=== PATIENT | female | born 1985 | race Asian ===

== ENCOUNTER 2024-12-28 23:30 | Emergency (ER) | payer SELFPAY ==
--- NOTE | ~2024-12-28 | XR_ITS ---
CLINICAL HISTORY: cough 1 view chest x-ray Comparison: None provided Findings: Heart size is normal. Lungs are somewhat hyperinflated. Mild interstitial changes which could be chronic. No consolidation, significant pleural effusion or pneumothorax. No acute fracture. Dextrocurvature of the spine suggestive of scoliosis. IMPRESSION: 1. No acute findings. 2. Mild hyperinflation and interstitial changes which could be chronic. This document has been electronically signed by: Tana Wright MD on 12/29/2024 00:52:25
[2024-12-28 23:34] VITALS: BP 120/88; PULSE 100; RESP 20; TEMP 36.8; O2SAT 95; BMI 22.2
[2024-12-29] MEDS: Albuterol Sulfate 5 MG, Albuterol/Iprat 2.5/0.5MG 3 ML 3 ML INHALE (00:03)
--- NOTE | 2024-12-29 00:03 | ED_ITS ---
HPI - Asthma General Chief Complaint: Asthma Stated Complaint: SoB Time Seen by Provider: 12/28/24 23:39 Source: patient Limitations: no limitations History of Present Illness ED Provider: Maddi Hurtado PA-C HPI Narrative: 39-year-old female with a history of asthma presents with cough and cold symptoms x3 days. Associated chest tightness with wheezing. Patient states she is not responding to her home inhaler. Denies fever or sick contacts with similar symptoms. Related Data Previous Rx's ?Medication ?Instructions ?Recorded albuterol sulfate 90 mcg/actuation 2 puff inhalation Q 4-6H PRN 12/29/24 aerosol inhaler (Ventolin HFA) shortness of breath or wheezing #8.5 grams prednisone 20 mg tablet 40 mg (2 x 20 mg) PO DAILY # 8 tabs 12/29/24 Allergies Allergy/AdvReac Type Severity Reaction Status Date / Time No Known Allergies Allergy Verified 12/28/24 23:35 Review of Systems Review of Systems: Yes all other systems are reviewed and are negative Constitutional: Constitutional: Denies fatigue and Denies fever(s) Cardiovascular: Cardiovascular: Denies chest pain and Reports dyspnea Respiratory: Respiratory: Reports cough, Reports dyspnea and Reports wheezing Endocrine: Endocrine: Denies fatigue Allergic/Immunologic: Allergic/Immunologic: Reports wheezing PMFSH Past Medical History Attestation statement: The following information was validated with the patient. Social History Social History Advance Directives: No Advance Directives Information Provided: Yes Physical Exam Vital Signs: Vital Signs: Last Vital Signs Temp 98.2 F 12/28/24 23:34 Pulse 79 12/29/24 00:04 Resp 18 12/29/24 00:04 BP 120/88 12/28/24 23:34 Pulse Ox 95 12/28/24 23:34 O2 Del Method Room Air 12/28/24 23:34 BMI result Body Mass Index 22.2 Const: Other: Alert well-appearing Orientation/consciousness: patient oriented x3 Resp: Other: Diffuse expiratory wheezes posterior gardiner Cardio: Other: Normal peripheral perfusion Skin: Other: Warm dry no rash Neuro: General: patient oriented x3, gait normal, no focal motor deficits and CN's II-XI intact bilaterally Psych: Other: Cooperative Course Course Course Narrative: Patient improved after treatment Medications Administered Discontinued Medications Generic Name Dose Route Start Last Admin Trade Name Freq PRN Reason Stop Dose Admin Albuterol Sulfate 5 mg/ 0 mg 12/28/24 23:56 12/29/24 00:03 Albuterol/Ipratropium 3 ml INHALE 12/28/24 23:57 7.5 each ONCE ONE Administration Prednisone 40 mg 12/28/24 23:40 12/28/24 23:47 Prednisone 20 Mg Tablet PO 12/28/24 23:41 40 mg ONCE ONE Administration Medical Decision Making Medical Decision Making MDM Narrative: 39-year-old female with a history of asthma presents with cough and cold symptoms x3 days. Associated chest tightness with wheezing. Patient states she is not responding to her home inhaler. Denies fever or sick contacts with similar symptoms. Problem: Asthma History: Per patient I have considered the following differential diagnoses: Asthma exacerbation, viral syndrome, pneumonia, bronchitis Plan: Viral panel and chest x-ray ordered, we will order an updraft and give steroid. I have independently reviewed the following tests: Labs: Viral panel negative Chest x-ray:Findings: Heart size is normal. Lungs are somewhat hyperinflated. Mild interstitial changes which could be chronic. No consolidation, significant pleural effusion or pneumothorax. No acute fracture. Dextrocurvature of the spine suggestive of scoliosis. IMPRESSION: 1. No acute findings. 2. Mild hyperinflation and interstitial changes which could be chronic. Differential Diagnosis Differential Diagnoses: The differential diagnosis associated with the presentation includes See medical decision-making Admission/Observation Consideration of admission/observation: Escalation of care including admission/observation considered Not applicable Lab Data [facility] Lab Attestation statement: I reviewed the patient's lab results. Labs: Lab Results 12/28/24 Range/Units 23:50 Influenza Type A (PCR) NEGATIVE (Negative) Influenza Type B (PCR) NEGATIVE (Negative) RSV RNA Qual (PCR) NEGATIVE (Negative) SARS-CoV-2 RNA (RT-PCR) NEGATIVE (Negative) Radiology Impression Discussion of test interpretation with radiology: I have reviewed the radiologist's reading. Discharge Plan Discharge Clinical Impression: Asthma with acute exacerbation Patient Disposition: Home, Self-Care Instructions: Asthma (ED) Additional Instructions: You were tested for influenza RSV and COVID, the viral panel was negative. The chest x-ray is clear you do not have pneumonia. You are being treated for an asthma exacerbation. See home care instructions. Use your inhaler as needed, take the steroid as directed. Follow up with primary care as needed. Prescriptions: New albuterol sulfate [Ventolin HFA] 90 mcg/actuation HFA aerosol inhaler 2 puff inhalation Q4-6H PRN (Reason: shortness of breath or wheezing) Qty: 8.5 0RF prednisone 20 mg tablet 40 mg PO DAILY Qty: 8 0RF Stand Alone Forms: Work/School Release Print Language: Turkish
[2024-12-29 00:04] VITALS: PULSE 79; RESP 18; O2SAT 97
--- OUTSIDE RECORDS SUMMARY | 2024-12-29 00:33 | XMS_ITS | Clinical Summary ---
Author Organization [facility] Address [address] [place] [address] Phone Care Team Providers Care Exchange Teller Name Role Phone Pcp, Unknown Primary Care Provider Unavailabl e Allergies Active Allergy Reactions Criticality Noted Date Comments Cat Dander 09/02/2024 Dog Dander 09/02/2024 Egg 09/02/2024 Other 09/02/2024 Pollen Medications ondansetron (ZOFRAN-ODT) 4 MG disintegrating tablet (To-Go) Take 1-2 tablet(s) by mouth every 8 hours as needed for nausea/vomi ting 6 tablet Active Social History Tobacco Use Types Packs/Day Years Used Date Smoking Tobacco: Never Assessed Education Answer Date Recorded Are you interested in more education? Not on meng e 09/03/2024 Are you concerned about learning? Not on file 09/03/2024 No 09/03/2024 No 09/03/2024 Food Answer Date Recorded Within the past 6 months we worried whether our food would run out before we got money to buy more. Never True 09/03/2024 Within the past 6 months the food we bought just didn't last and we didn't have enough money to get more. Never True Residential Stability Answer Date Recor ded What is your housing situation today? I have althea sing 09/03/2024 How many times have you move d in the past 12 months? Zero (I did not move) 09/03/2024 Paying for Meds Answer Date Recorded Do you have trouble paying for medicines? No 09/03/2024 Paying Utility Bills Answer Date Record ed Do you have trouble paying your heating or elect ricity bill? No 09/03/2024 Transportation Answer Date Recorded Has the lack of transportati on kept you from medical appointments or from getting medications? No 09/03/2024 Digital Access Answer Date Recorded No 09/03/2024 Yes 09/03/2024 Do you have reliable internet access at home? Ye s 09/03/2024 Do you have a device (e.g., phone, tablet, computer) with a working camera? Yes 09/03/2024 Intimate Partner Violence Answer Date R ecorded Are you denied basic needs s uch as food, clothing, or medical care? No 09/02/2024 In the past 12 months have y ou been in a relationship with a person who hurts, threatens, or tries to control you? No 09/02/2024 Are you denied basic needs s uch as food, clothing, or medical care? No 09/02/2024 In the past 12 months have y ou been in a relationship with a person who hurts, threatens, or tries to control you? No 09/02/2024 Comments Unknown Sex and Gender Information Value Date Recorded Sex Assigned at Female 09/03/2024 2:49 AM EDT Legal Sex Female 9:13 PM EDT Gender Identity Female 09/03/2024 2:49 AM EDT Sexual Orientation Straight 09/03/2024 2: 49 AM EDT Last Filed Vital Signs Vital Sign Reading Time Taken Comments Blood Pressure 93/50 09/02/2024 11:49 PM EDT Pulse 88 09/02/2024 11:49 PM EDT Temperature 36.3 C (97.3 F) 09/02/2024 11:49 PM EDT Respiratory Rate 18 09/02/2024 11:49 PM EDT Oxygen Saturation 99% 09/02/2024 11:49 PM EDT Inhaled Oxygen Concentration - - Weight 49 kg (108 lb) 09/02/2024 11:49 PM EDT Height 149.9 cm (4' 11 ) 09/02/2024 11:49 PM EDT Body Mass Index 21.81 09/02/2024 11:49 PM EDT Plan of Treatment Health Maintenance Due Date Last Done Comments Adult Td,Tdap Booster 1985 DEPRESSION SCREENING 1997 SMOKING Hx and SMOKELESS TOB ACCO SCREENING 1998 HEPATITIS C SCREENING 09/12/2003 HIV ONE-TIME SCREENING (18-6 5 YEARS) 09/12/2003 PAP SMEAR 2006 INFLUENZA VACCINE (#1) 2024 COVID-19 VACCINE ( - 2024-2 6 season) 2024 HEPATITIS A VACCINES Aged Out No long er eligible based on patient's age to complete this topic HIB VACCINES Aged Out No longer eligi ble based on patient's age to complete this topic MENINGOCOCCAL VACCINES (ACWY) Aged Out No longer eligible based on patient's age to complete this topic MENINGOCOCCAL VACCINES (B) Aged Out N o longer eligible based on patient's age to complete this topic PNEUMOCOCCAL VACCINES (0-49 years) Aged Out No longer eligible based on patient's age to complete this topic Medical Devices Not on file Care Teams Exchange Teller Relationship Specialty Start Date End Date Pcp, Unknown PCP - General 09/02/24 Additional Source Comments The information contained in this document represents components of the legal health record. It is not the complete legal health record.[facility]
--- OUTSIDE RECORDS SUMMARY | 2024-12-29 00:33 | XMS_ITS | Clinical Summary ---
Author Organization [employer] Address [address] [place] [address] Care Team Providers Care Aerosol Line Operator Name Role Phone Unavailable Primary Care Provider Unavailabl e Encounters Date Type Department Care Team Description 12/03/2024 Population Health Risk Score [facility] ([facility]) Department [address] [place] [id number] Provider, Population Health Generic from Last 3 Months Social History Tobacco Use Types Packs/Day Years Used Date Smoking Tobacco: Never Assessed Comments Unknown Sex and Gender Information Value Date Recorded Sex Assigned at Not on file Legal Sex Female 2:34 AM EDT Gender Identity Not on file Sexual Orientation Not on file Plan of Treatment Health Maintenance Due Date Last Done Comments Depression Screening 1985 HIV Screening 1985 SDOH Screening 1985 Disability Screening 1985 Alcohol/Substance Use Screening 1997 Tobacco Screening 1997 Family Planning (PISQ) 2000 HPV Vaccines (1 - 3-dose series) 2000 Hepatitis C Screening 09/12/2003 DTaP/Tdap/Td Vaccines (1 - Tdap) 2004 Hepatitis B Vaccines (1 of 3 - 19+ 3-dose series) 2004 Pap Smear 2006 Cervical Cancer Screening 09/12/2015 HPV/Cotest 09/12/2015 COVID-19 Vaccine (1 - 2023-2 5 season) 2024 Influenza Vaccine (#1) 2024 Zoster Vaccines (1 of 2) 09/12/2035 RSV Patients and Pa tients Aged 60 years or older (1 - 1-dose 75+ series) 2060 HIB Vaccines Aged Out No longer eligi ble based on patient's age to complete this topic Hepatitis A Vaccines Aged Out No long er eligible based on patient's age to complete this topic IPV Vaccines Aged Out No longer eligi ble based on patient's age to complete this topic Meningococcal B Vaccine Aged Out No l onger eligible based on patient's age to complete this topic Meningococcal Vaccine Aged Out No gaetano manny eligible based on patient's age to complete this topic Pneumococcal Vaccine: Pediat rics (0 to 5 Years) and At-Risk Patients (6 to 49) Years Aged Out No longer eligible b ased on patient's age to complete this topic RSV under 20 months Aged Out No longe r eligible based on patient's age to complete this topic Rotavirus Vaccines Aged Out No longer eligible based on patient's age to complete this topic
[2024-12-29 00:34] LABS: Resp Syncy Virus RNA Qual PCR NEGATIVE (Negative); SARS COV2 PCR INHOUSE NEGATIVE (Negative)
[2024-12-29 01:29] VITALS: BP 116/63; PULSE 98; RESP 18; TEMP 36.9; O2SAT 96
== END 2024-12-29 01:30 | disposition home or self-care (01) ==
PROVIDERS: Physician Assistant Medical; Emergency Provider Emergency Medicine
DX: J45.901 Unspecified asthma with (acute) exacerbation (principal); R05.9 Cough, unspecified; Z03.818 Encounter for observation for suspected exposure to other biological agents ruled out
CPT/HCPCS: 71045; 87637; 94640; 99283; 99284

== ENCOUNTER → 2024-12-28 23:39 | Outpatient (BNV) | payer SELFPAY | PROVIDERS: Emergency Provider Emergency Medicine; Visit Provider Specialist | DX: J98.4 Other disorders of lung (principal); J84.9 Interstitial pulmonary disease, unspecified | CPT/HCPCS: 71045 ==